=== PATIENT | male | born 1960 | race Caucasian/White ===

== ENCOUNTER 2017-04-06 08:34 | Day surgery (SDC) | payer OTHER ==
[~2017-04-06] VITALS: Ht 170.2 cm; Wt 77.1 kg
[~2017-04-06 08:34] MED LIST: VITAL RED PO
[2017-04-06 10:21] VITALS: BP 119/70; Ht 170.2 cm; Wt 77.1 kg
--- NOTE | 2017-04-06 13:59 | OP ---
PATIENT NAME: SUNIL DEE MEDICAL RECORD: [id number] :62 LOCATION:[facility] ADMISSION DATE: SURGEON: MARIO OJEDA MD DATE OF OPERATION: 04/06/2017 SURGEON: Mario Ojeda MD ANESTHESIA: TIVA by Tommie Domingo MD PREOPERATIVE DIAGNOSIS: Elevated PSA of 9.57. PROCEDURES: Transrectal ultrasound and prostate biopsy. FINDINGS: A 62-gram prostate. No hypoechoic areas. SPECIMENS: Prostate biopsy cores. BLOOD LOSS: Minimal. CLINICAL HISTORY: This is a 57-year-old male who was found to have an elevated PSA of 9.57 on a specimen of 03/20/2017. His last previous PSA was on 11/24/2010 and it was 3.08 at that time. He has some hesitancy in starting his urine flow and slow urinary stream. Other than that, he has minimal voiding symptoms. He is sexually active. His family history is positive for a brother with an elevated PSA. The prostate biopsy on his brother was benign. Thus, there is currently no family history of prostate cancer. He wishes to have transrectal ultrasound and prostate biopsy. On digital rectal examination, he had an enlarged prostate of about 60 grams in size with no nodules palpable. He is not allergic to any medication. 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 DESCRIPTION OF PROCEDURE: The patient was given IV sedation. He was then placed into lithotomy position and prepped. The ultrasound probe was placed and size measurements of the prostate were obtained. Prostate size was estimated at 62 grams. Sextant biopsies were obtained with at least 3 cores from each sextant. Once the procedure was done, the patient was awakened and brought to the preoperative holding area. I will see him in followup next week to review the pathology results with him. TRANSINT:[id number] Voice Confirmation ID: [id number] DOCUMENT ID: [id number] MARIO OJEDA MD at 1359 CC: [id number] DICTATION DATE: 04/06/17 1136 [address] OPERATOR: 04/06/17 1226 [facility] [address] [place] [address]
--- NOTE | 2017-04-06 15:54 | NUR ---
1250--PT VOIDS WITHOUT DIFFICULTY, IV DC'D. JOSE RN [id number]--DISCHARGE INSTRUCTIONS GIVEN, PT VERBALIZES UNDERSTANDING. PT OFF UNIT VIA WC. JOSE COOLEY
== END 2017-04-06 13:05 | disposition home or self-care (01) ==
LOC: D.OPS 08:34 → D.PAN 10:45 → D.OPS 10:45
DX: R97.20 Elevated prostate specific antigen [PSA] (principal); Z01.812 Encounter for preprocedural laboratory examination